=== PATIENT | female | born 1960 | race Caucasian/White ===

== ENCOUNTER → 2017-01-25 | Outpatient (CLI) | payer OTHER ==
--- NOTE | 2017-01-25 14:59 | DIAGNOSTIC IMAGING REPORT ---
L-SPINE MIN 4 VIEWS ROUTINE CLINICAL HISTORY: LUMBAR BACK PAIN COMPARISON STUDY: No previous studies for comparison. FINDINGS: There are 5 lumbar type vertebral bodies present. There are moderately advanced multilevel degenerative changes with disc space narrowing most pronounced the L4-5 and L5-S1 levels. There is a grade 1 spinal listhesis of L5 and S1. No acute fractures are visualized. No destructive lesions are evident. There is facet joint arthropathy most pronounced at the L5-S1 level. IMPRESSION: 1. No acute fractures 2. Moderate degenerative change 3. No destructive lesions are visualized on conventional radiographic imaging Electronically signed by: Vinnie Hernandez M.D. 01/25/2017 2:58 PM Dictated Date/Time: 01/25/2017 2:57 PM
== END | disposition home or self-care (01) ==
LOC: C.RADPV 14:38
PROVIDERS: ATTEND Family Medicine
DX: M51.36 Other intervertebral disc degeneration, lumbar region (principal)

== ENCOUNTER → 2017-12-04 | Outpatient (CLI) | payer OTHER ==
--- NOTE | 2017-12-05 15:13 | MAMMOGRAPHY REPORT ---
BILATERAL DIGITAL SCREENING MAMMOGRAM TOMOSYNTHESIS WITH CAD: 12/04/2017 CLINICAL HISTORY: Routine screening. Patient has no complaints. TECHNIQUE: The study was acquired using full field digital technology and interpreted from soft copy. Breast tomosynthesis in addition to standard 2D mammography was performed. Current study was also ev aluated with a Computer Aided Detection (CAD) system. COMPARISON: Comparison is made to exams dated: 04/27/2016 mammogram, 03/31/2015 mammogram, 03/10/2014 mammogram, 02/25/2013 mammogram, 01/24/2011 mammogram, and [facility] . BREAST COMPOSITION: There are scattered areas of fibroglandular density in both breasts. FINDINGS: There are prominent bilateral axillary lymph nodes which may be increased in size comparing to prior mammograms including the 2013 exam. Although some of the increased prominence could be due to including more posterior tissue within the [id number], additional targeted bilateral axillary ultrasound is recommended for further characterization and to assess lymph no morphology. No other suspicious mass, architectural distortion or cluster of microcalcifications is seen. IMPRESSION: ACR BI-RADS CATEGORY 0: INCOMPLETE EVALUATION: NEED ADDITIONAL IMAGING EVALUATION The increasingly prominent bilateral axillary lymph nodes need additional imaging evaluation. The patient will be called to schedule an appointment. Some breast cancers are not detected with mammography. A negative mammographic report should not jodie y biopsy if a clinically suggestive mass is present. Anna Bosch M.D. ay/:12/04/2017 16:06:15 [employer]: RT Holden(Alexa)(M), [facility] letter sent: Addl Imaging 0 BI-RADS Code: ACR BI-RADS Category 0: Incomplete Evaluation: Need Additional Imaging Evaluation
== END | disposition home or self-care (01) ==
LOC: C.MAMM 14:33
PROVIDERS: ATTEND Family Medicine
DX: Z12.31 Encounter for screening mammogram for malignant neoplasm of breast (principal); I89.9 Noninfective disorder of lymphatic vessels and lymph nodes, unspecified